=== PATIENT | female | born 1980 | race African-American/Black ===

== ENCOUNTER 2022-08-17 12:46 | Inpatient (IN) | payer MEDICAID ==
[~2022-08-17] VITALS: Ht 165.1 cm; Wt 61.2 kg
[2022-08-17 12:48] VITALS: BP 142/60
--- NOTE | 2022-08-17 12:50 | NUR ---
SHERRI PAVON, TO BED 02 VIA EFRAÍN.
--- NOTE | 2022-08-17 13:00 | NUR ---
42 Y/O FEMALE BIBA HOME C/O RUQ ABD PAIN X1DAY WITH 1 EPISODE OF NV TODAY. STATES THAT SHE TOOK A "SHOT" TODAY AND A PINT OF VODKA YESTERDAY. BELIEVES THIS TO BE THE CAUSE OF HER PAIN. DENIES DIARRHEA, DENIES ANY BLOOD IN VOMITUS. DENIES ANY MEDICATION PRIOR TO ARRIVAL. PLACED ON BEDSIDE MONITOR NKA PMH: GALLBLADDER REMOVAL
[2022-08-17 14:03] LABS: BASOPHILS % (AUTO) 0.4 % (0.0-2.0); EOSINOPHILS % (AUTO) 0.4 % (0.0-4.0); HEMATOCRIT 35.6 % (36-48); HEMOGLOBIN 12.1 g/dL (12.0-16.0); LYMPHOCYTES # (AUTO) 1.5 K/uL (2.5-16.5); LYMPHOCYTES % (AUTO) 14.3 % (20.5-51.1); MEAN CORPUSCULAR HEMOGLOBIN 29 pg (27-31); MEAN CORPUSCULAR HGB CONC 34 g/dL (33-37); MEAN CORPUSCULAR VOLUME 86.8 fL (80-94); MONOCYTES # (AUTO) 0.9 K/uL (0.8-1.0); MONOCYTES % (AUTO) 8.5 % (1.7-9.3); NEUTROPHILS # (AUTO) 7.9 K/uL (1.8-7.7); NEUTROPHILS % (AUTO) 76.4 % (42.2-75.2); PLATELET COUNT (AUTO) 458 K/uL (140-450); RED CELL DISTRIBUTION WIDTH 14.3 % (11.6-13.7); WHITE BLOOD COUNT (AUTO) 10.3 K/uL (4.8-10.8)
[2022-08-17 14:52] LABS: ANION GAP 9.7 (8-16); CARBON DIOXIDE 31.9 mmol/L (21-32); CREATININE 0.7 mg/dL (0.6-1.3); POTASSIUM 3.6 mmol/L (3.5-5.1); TOTAL BILIRUBIN 0.5 mg/dL (0.0-1.0)
[2022-08-17] MEDS ORDERED: NACL 0.9% 1,000 ML IV ONE ×2 (15:55→17:20)
[2022-08-17] MEDS ORDERED: ONDANSETRON 4 MG/2 ML VIAL IVP ONE (15:55)
[2022-08-17] MEDS ORDERED: MORPHINE SULFATE 4 MG/ML SYR IVP ONE (15:55)
--- NOTE | 2022-08-17 16:43 | NUR ---
Covid specimen obtained/labeled and walked to lab.
[2022-08-17] MEDS ORDERED: ONDANSETRON 4 MG/2 ML VIAL ONE (17:00)
[2022-08-17] MEDS ORDERED: MORPHINE SULFATE 4 MG/ML SYR ONE (17:00)
--- NOTE | 2022-08-17 19:23 | NUR ---
PT IS IN ROOM AIR. ALERT AND ORIENTED X4. SHE IS AMBULATORY. ROOM AIR.
[2022-08-17 21:29] LABS: APPEARANCE,URINE CLEAR (CLEAR); BILIRUBIN,URINE NEGATIVE (NEGATIVE); BLOOD, URINE NEGATIVE (NEGATIVE); COLOR,URINE YELLOW (YELLOW); LEUKOCYTE ESTERASE ,URINE NEGATIVE (NEGATIVE); NITRITE, URINE NEGATIVE (NEGATIVE); UGLUCOSE NEGATIVE (NEGATIVE)
[2022-08-17] MEDS: MORPHINE SULFATE 2 MG/ML SYR IVP PRN (21:39)
--- NOTE | 2022-08-17 23:53 | NUR ---
RECEIVED SHIFT REPORT FROM ÁLVARO AARON FOR ED. PATIENT WILL ARRIVE SHORTLY TO THE MED/SURG FLOOR. [id number]
--- NOTE | 2022-08-18 00:14 | NUR ---
RECEIVED [id number] VIA WHEELCHAIR FOR ADMISSION. PATIENT ALERT AND ORIENTED X 4. PATIENT WAS ABLE TO VERBALIZE WHY SHE WAS ADMITTED TO THE HOSPITAL. PATIENT WAS ALSO ABLE TO GIVE HER MEDICAL HISTORY. NO NOTED OPEN WOUND DURING BODY CHECK. PATIENT ON ROOM AIR CHEST RISING AND FALLING WITHOUT INCIDENT. PATIENT COMPLAINED OF PAIN 6/10 TO ABDOMINAL BUT WAS EXPLAINED MEDIATION IS NOT DUE FOR ADMINISTRATION UNTIL 0139. NURSING GAVE HOSPITAL ORIENTATION TO ROOM AND VISITING HOURS. SIDE RAILS UP X 2 FOR SAFETY AND ADJUSTMENTS. CALL LIGHT WITHIN REACH FOR ASSISTANCE. [email or web address]
--- NOTE | 2022-08-18 00:37 | NUR ---
Patient will be admitted to care of pancreatitis. Admited to [facility]. Will go to room 106 B. Belongings list completed. Report to choco.
[2022-08-18] MEDS: MORPHINE SULFATE 2 MG/ML SYR IVP PRN ×4 (02:28→20:18)
--- NOTE | 2022-08-18 02:34 | NUR ---
Patient's Plan of Care was discussed and reviewed with ROLLER SHOP SUPERVISOR: YOLETTE
--- NOTE | 2022-08-18 03:40 | NUR ---
PATIENT IS ASLEEP IN BED. [email or web address]
[2022-08-18 04:00] VITALS: BP 106/60
--- NOTE | 2022-08-18 05:23 | NUR ---
PAIN IN ABDOMINAL HAS LESSEN SIGNIFICANTLY STATED BY PATIENT. PATIENT WAS ABLE TO WALK TOT HE RESTROOM WITHOUT INCIDENT. NO COMPLAINTS OF PAIN AT THIS TIME. NOL NOTED RESPIRATORY DISTRESS. [email or web address]
--- NOTE | 2022-08-18 07:06 | NUR ---
ENDORSED PATIENT TO LUIS ENRIQUE RN (REGISTRY), PATIENT WAS STABLE AT THIS TIME. [email or web address]
--- NOTE | 2022-08-18 07:18 | NUR ---
receive the patinet from the assistant finance director rn in rm 106B aox4 room air . admitting diagnosis of pancreatitis . will continue to monitor .
[2022-08-18 07:25] LABS: CARBON DIOXIDE 28.6 mmol/L (21-32); CREATININE 0.7 mg/dL (0.6-1.3); POTASSIUM 3.6 mmol/L (3.5-5.1)
[2022-08-18 08:02] LABS: BASOPHILS % (AUTO) 0.5 % (0.0-2.0); EOSINOPHILS # (AUTO) 0.1 K/uL (0-0.4); EOSINOPHILS % (AUTO) 1.4 % (0.0-4.0); HEMATOCRIT 34.8 % (36-48); HEMOGLOBIN 11.7 g/dL (12.0-16.0); LYMPHOCYTES # (AUTO) 2.3 K/uL (2.5-16.5); MEAN CORPUSCULAR HEMOGLOBIN 30 pg (27-31); MEAN CORPUSCULAR HGB CONC 34 g/dL (33-37); MONOCYTES # (AUTO) 0.7 K/uL (0.8-1.0); MONOCYTES % (AUTO) 10.2 % (1.7-9.3); NEUTROPHILS % (AUTO) 55.9 % (42.2-75.2); PLATELET COUNT (AUTO) 417 K/uL (140-450); RED BLOOD CELL COUNT(AUTO) 3.91 MIL/uL (4.20-5.40); RED CELL DISTRIBUTION WIDTH 14.4 % (11.6-13.7); WHITE BLOOD COUNT (AUTO) 7.2 K/uL (4.8-10.8)
--- NOTE | 2022-08-18 09:00 | NUR ---
morphine sulfate was given due to abdominal pain
[2022-08-18] MEDS ORDERED: HYDROcodone/APAP 7.5/325 MG 1 TAB PO PRN (10:20)
[2022-08-18] MEDS ORDERED: ZOLPIDEM 5 MG TAB PO PRN (10:20)
[2022-08-18] MEDS ORDERED: guaiFENesin DM 200/20 MG-10 ML 10 ML UDC PO PRN (10:20)
[2022-08-18] MEDS ORDERED: ACETAMINOPHEN 325 MG TAB PO PRN (10:20)
[2022-08-18] MEDS ORDERED: DOCUSATE SODIUM 100 MG GELCAP PO PRN (10:20)
[2022-08-18] MEDS ORDERED: ONDANSETRON 4 MG/2 ML VIAL IM/IVP PRN (10:20)
--- NOTE | 2022-08-18 10:30 | NUR ---
got consent for ct of the abdomen and pelvis with contrast
[2022-08-18 11:03] LABS: PROTHROMBIN TIME 11.7 secs (10.8-13.4)
--- NOTE | 2022-08-18 11:30 | NUR ---
pick for the ct of the abdomen . result was hemorrhagic pancreatitis .
--- NOTE | 2022-08-18 11:45 | NUR ---
made md corea aware . order to consult md guerin for a surgical , possible to higher level of care .
[2022-08-18 12:01] LABS: CHOL/HDL RATIO 3.4 (1-4.5); FREE T4 (FREE THYROXINE) 1.21 ng/dL (0.76-1.46); MAGNESIUM 1.7 mg/dL (1.8-2.4); PHOSPHORUS 4.1 mg/dL (2.5-4.9); THYROID STIMULATING HORMONE 1.68 uIU/mL (0.34-3.74)
--- NOTE | 2022-08-18 12:30 | NUR ---
md guerin order to be transfer to higher level of care. will inform the change house attendant
[2022-08-18] MEDS: DEXT 5% /NACL 0.9% 1,000 ML IV SCH ×3 (13:34→23:33)
--- NOTE | 2022-08-18 14:10 | NUR ---
the shannon corrugator supervisor inform the rn that [facility] for possible transfer requesting for a pcr covid test . sample has been sent to the lab
--- NOTE | 2022-08-18 15:38 | NUR ---
ORDER AMD PROGRESS NOTES, H&P, LABS, MEDICATIONS FAXED TO [facility] AT [facility] [phone]. SPKE TO [facility] AND REQUESTED THE COVID PCR. CALLED [facility] [phone] AND PLACED ON HOLD. WILL MONITOR.
--- NOTE | 2022-08-18 18:27 | NUR ---
will endorse to police shift commander rn for continuity of care. for possible transfer to higher level of care
--- NOTE | 2022-08-18 19:14 | NUR ---
[facility], [place] decline to accept, spoke to Dr. Silverman and was made aware. He asked for lipase level and stated that patient has pancreatitis and it can be managed at [facility]. No need to transfer to Higher LOC.
--- NOTE | 2022-08-18 19:15 | NUR ---
RECEIVED PATIENT LYING ON THE BED, NO DISTRESS NOTED, PATIENT IS AWAKE, ALERT AND ORIENTED. CALL LIGHT WITHIN REACH.
[2022-08-18 20:00] VITALS: BP 118/78
--- NOTE | 2022-08-18 20:18 | NUR ---
PATIENT C/O 7/10 PAIN ON ABDOMEN AND LOWER BACK, PRN MORPHINE GIVEN ORDERED. BP 118/78. ALL SAFETY MEASURES IN PLACE.
--- NOTE | 2022-08-18 20:50 | NUR ---
PATIENT WAS SEEN BY DR. RICE, PER DR. RICE, PATIENT DOES NOT NEED TO TRANSFER TO TERTIARY CARE, NEEDS GI CONSULT, DR. RICE ALREADY SPOKE WITH CHRISTIANO WOOD. PATIENT STILL NPO TONIGHT. PATIENT INFORMED OF NPO STATUS, VERBALIZED UNDERSTANDING.
--- NOTE | 2022-08-19 00:43 | NUR ---
PATIENT IS ASLEEP, NO SIGNS OF DISTRESS NOTED, NO SIGNS OF PAIN/DISCOMFORT NOTED. CALL LIGHT WITHIN REACH.
[2022-08-19 04:00] VITALS: BP 101/55
[2022-08-19] MEDS: MORPHINE SULFATE 2 MG/ML SYR IVP PRN ×2 (05:50→10:58)
--- NOTE | 2022-08-19 05:50 | NUR ---
PRN MORPHINE GIVEN ORDERED, PATIENT C/O 01/07 PAIN ON RIGHT SIDE OF ABDOMEN. BP 123/81, P 68.
[2022-08-19 07:27] LABS: BASOPHILS % (AUTO) 0.4 % (0.0-2.0); EOSINOPHILS # (AUTO) 0.2 K/uL (0-0.4); EOSINOPHILS % (AUTO) 2.5 % (0.0-4.0); HEMATOCRIT 35.1 % (36-48); HEMOGLOBIN 11.8 g/dL (12.0-16.0); LYMPHOCYTES # (AUTO) 1.9 K/uL (2.5-16.5); LYMPHOCYTES % (AUTO) 27.1 % (20.5-51.1); MEAN CORPUSCULAR HEMOGLOBIN 30 pg (27-31); MEAN CORPUSCULAR HGB CONC 34 g/dL (33-37); MEAN CORPUSCULAR VOLUME 88.1 fL (80-94); MONOCYTES # (AUTO) 0.7 K/uL (0.8-1.0); NEUTROPHILS # (AUTO) 4.1 K/uL (1.8-7.7); PLATELET COUNT (AUTO) 387 K/uL (140-450); RED BLOOD CELL COUNT(AUTO) 3.99 MIL/uL (4.20-5.40); RED CELL DISTRIBUTION WIDTH 14.3 % (11.6-13.7); WHITE BLOOD COUNT (AUTO) 6.9 K/uL (4.8-10.8)
--- NOTE | 2022-08-19 07:32 | NUR ---
ENDORSED PATIENT TO DAY NURSE FOR CONTINUITY OF CARE. NEEDS MET THROUGHOUT THE SHIFT, PATIENT IN STABLE CONDITION.
--- NOTE | 2022-08-19 07:33 | NUR ---
RECEIVED PT FROM CORPORATE DEVELOPMENT ANALYST NURSE FOR CONTINUITY OF CARE. PT IN BED CRYING. STATES SHE HAS ABDOMINAL PAIN 10/10 AND LAST DOSE OF PAIN MEDICATION GIVEN TO HER NOT WORKING. INFORMED DR BOWERS, OF MORPHINE GIVEN AT 0550 AND PAIN STILL /, AWAITING DR RESPONSE. PROVIDED PT WITH HEATING PACKS AND ASSISTED PT TO REPOSITION. PT IS AOX4 ABLE TO VERBALIZE NEEDS. RESPIRATIONS EVEN AND UNLABORED ON RA. SKIN WARM AND DRY TO TOUCH. IV ON R ARM 20G INFUSING @125CCS. CALL LIGHT WITHIN REACH. ALL SAFETY PRECAUTIONS IN PLACE.
[2022-08-19 07:35] LABS: ANION GAP 8.7 (8-16); CARBON DIOXIDE 29.8 mmol/L (21-32); CREATININE 0.7 mg/dL (0.6-1.3); POTASSIUM 3.5 mmol/L (3.5-5.1)
[2022-08-19 08:00] VITALS: BP 153/104
[2022-08-19 08:06] LABS: T4 (THYROXINE) 9.4 ug/dL (4.5-12.0)
--- NOTE | 2022-08-19 08:33 | NUR ---
PATIENT HAS BEEN SCREENED AND CATEGORIZED LOW NUTRITION RISK. PATIENT WILL BE SEEN WITHIN 7 DAYS OF ADMISSION. 08/17/22-08/24/[address]
[2022-08-19] MEDS: DEXT 5% /NACL 0.9% 1,000 ML IV SCH ×2 (08:58→17:55)
[2022-08-19] MEDS: PANTOPRAZOLE 40 MG TABEC PO SCH (09:03)
--- NOTE | 2022-08-19 10:55 | NUR ---
PT C/O PAIN 8/10 ON ABDOMEN. MEDICATED WITH MORPHINE BY GALEN AWAD.
[2022-08-19] MEDS: POTASSIUM CHLORIDE 10 MEQ TABER PO PRN (12:23)
--- NOTE | 2022-08-19 12:23 | NUR ---
K DUR ADMINISTERED, PT TOLERATED WELL. ICE CHIPS GIVEN PER DR BOWERS.
--- NOTE | 2022-08-19 15:00 | NUR ---
MAKING ROUNDS, PT IN BED SLEEPING VISIBLE CHEST RISE/FALL. CALL LIGHT WITHIN REACH.
[2022-08-19 16:00] VITALS: BP 126/96
[2022-08-19] MEDS: MORPHINE SULFATE 4 MG/ML SYR IVP PRN ×2 (16:36→20:33)
--- NOTE | 2022-08-19 17:00 | NUR ---
BROUGHT PT TOILETING SUPPLIES. CHANGED BEDDING/SHEETS.
--- NOTE | 2022-08-19 19:21 | NUR ---
ENDORSED PT TO ENTRY LEVEL ACCOUNT REPRESENTATIVE NURSE FOR CONTINUITY OF CARE. PT IN STABLE CONDITION.
--- NOTE | 2022-08-19 19:25 | NUR ---
RECEIVED PATIENT LYING ON THE BED, NO SIGNS OF DISTRESS NOTED, IV ACCESS SITE ON RIGHT ARM RUNNING D5NS @125ML/HR, ALL SAFETY MEASURES IN PLACE.
[2022-08-19 20:00] VITALS: BP 121/82
--- NOTE | 2022-08-19 20:38 | NUR ---
PATIENT C/O 7/10 PAIN ON RUQ, PRN MORPHINE GIVEN ORDERED. BP 121/82. WILL CONTINUE TO MONITOR THE PATIENT.
--- NOTE | 2022-08-19 22:34 | NUR ---
PATIENT IS ASLEEP, BREATHING EVEN AND NON LABORED. CALL LIGHT WITHIN REACH.
[2022-08-20] MEDS: MORPHINE SULFATE 4 MG/ML SYR IVP PRN ×3 (02:24→14:52)
--- NOTE | 2022-08-20 02:24 | NUR ---
PATIENT C/O 7/10 PAIN ON RUQ, PRN MORPHINE GIVEN ORDERED.
[2022-08-20] MEDS: DEXT 5% /NACL 0.9% 1,000 ML IV SCH ×4 (02:36→23:09)
[2022-08-20 04:00] VITALS: BP 104/62
--- NOTE | 2022-08-20 07:01 | NUR ---
ENDORSED TO DAY NURSE FOR CONTINUITY OF CARE. NEEDS MET THROUGHOUT THE SHIFT. PATIENT IN STABLE CONDITION.
--- NOTE | 2022-08-20 07:02 | NUR ---
RECEIVED PT FROM RADIOLOGICAL ENGINEER NURSE FOR CONTINUITY OF CARE. PT IN BED WITH EYES CLOSED. VISIBLE CHEST RISE/FALL. RESPIRATIONS EVEN AND UNLABORED ON RA. SKIN WARM AND DRY TO TOUCH. NO DISTRESS NOTED. IV ON R ARM 20G RUNNING 125CC OF D5NS FLUIDS. CALL LIGHT WITHIN REACH ALL SAFETY PRECAUTIONS IN PLACE.
[2022-08-20 07:22] LABS: BASOPHILS % (AUTO) 0.5 % (0.0-2.0); EOSINOPHILS # (AUTO) 0.1 K/uL (0-0.4); EOSINOPHILS % (AUTO) 2.7 % (0.0-4.0); HEMATOCRIT 31.8 % (36-48); HEMOGLOBIN 10.8 g/dL (12.0-16.0); LYMPHOCYTES % (AUTO) 35.4 % (20.5-51.1); MEAN CORPUSCULAR HEMOGLOBIN 30 pg (27-31); MEAN CORPUSCULAR HGB CONC 34 g/dL (33-37); MONOCYTES # (AUTO) 0.8 K/uL (0.8-1.0); MONOCYTES % (AUTO) 13.9 % (1.7-9.3); NEUTROPHILS # (AUTO) 2.6 K/uL (1.8-7.7); NEUTROPHILS % (AUTO) 47.5 % (42.2-75.2); PLATELET COUNT (AUTO) 345 K/uL (140-450); RED BLOOD CELL COUNT(AUTO) 3.57 MIL/uL (4.20-5.40); RED CELL DISTRIBUTION WIDTH 14.2 % (11.6-13.7); WHITE BLOOD COUNT (AUTO) 5.6 K/uL (4.8-10.8)
[2022-08-20 07:27] LABS: CARBON DIOXIDE 28.5 mmol/L (21-32); CREATININE 0.7 mg/dL (0.6-1.3); POTASSIUM 3.5 mmol/L (3.5-5.1)
[2022-08-20] MEDS: POTASSIUM CHLORIDE 10 MEQ TABER PO PRN (09:48)
[2022-08-20] MEDS: PANTOPRAZOLE 40 MG TABEC PO SCH (09:49)
--- NOTE | 2022-08-20 09:50 | NUR ---
ADMINISTERED SCHEDULED MED AND PRN POTASSIUM. PT TOLERATING WELL.
--- NOTE | 2022-08-20 12:32 | NUR ---
MAKING ROUNDS PT LAYING DOWN MAKING A PHONE CALL. CALL LIGHT WITHIN REACH.
[2022-08-20 16:00] VITALS: BP 119/84
[2022-08-20] MEDS: AMYLASE/LIPASE/PROTEASE 1 CAPDR PO SCH (17:23)
--- NOTE | 2022-08-20 19:30 | NUR ---
ENDORSED PT TO MANAGER BRAND NURSE FOR CONTINUITY OF CARE. PT IN STABLE CONDITION.
--- NOTE | 2022-08-20 19:31 | NUR ---
RECEIVED ENDORSEMENT FROM LAURA OLMEDO, PATIENT WAS STABLE DURING SHIFT CHANGE. PATIENT WAS ABLE TO EXPLAIN WHY SHE IS IN THE FACILITY. PATIENT INQUIRED ABOUT A DIET CHANGE BECAUSE SHE COMPLAINED THAT THE FOOD WAS TOO SWEET AND NOT GOOD. NURSING WILL INQUIRE FOR A CHANGE FOR THE DIET CHANGE. PATIENT IS AMBULATORY AND ABLE TO USE THE CALL LIGHT WITHOUT INCIDENT. SIDE RAILS UP X 2 FOR COMFORT AND SAFETY. IV CLEAN AND INTACT. NO S/S OF PAIN/DISCOMFORT. NO S/S OF RESPIRATORY DISTRESS. CALL LIGHT WITHIN REACH. [email or web address]
[2022-08-20 20:00] VITALS: BP 124/83
--- NOTE | 2022-08-20 20:00 | NUR ---
Patient's Plan of Care was discussed and reviewed with ATTENDING PHYSICIAN: EMILIANO COOLEY
[2022-08-20] MEDS ORDERED: AMITRIPTYLINE 10 MG TAB PO SCH (21:00)
--- NOTE | 2022-08-20 23:10 | NUR ---
DURING ROUNDS NURSING NOTED PATIENT IN BED ASLEEP. NO OTED S/S OF PAIN/DISCOMFORT. NO NOTED RESPIRATORY DISTRESS. SIDE RAILS UP X 2. BED IN THE LOWEST POSITION. CALL LIGHT WITHIN REACH. [email or web address]
--- NOTE | 2022-08-21 01:22 | NUR ---
DURING ROUNDS NURSING NOTED PATIENT ASLEEP. NO S/S OF PAIN/DISCOMFORT. NO S/S OF RESPIRATORY DISTRESS. SIDE RAILS UP X 2. CALL LIGHT IN REACH. [email or web address]
[2022-08-21] MEDS: MORPHINE SULFATE 4 MG/ML SYR IVP PRN (03:50)
[2022-08-21 04:00] VITALS: BP 108/72
--- NOTE | 2022-08-21 07:01 | NUR ---
ENDORSED PATIENT TO LAURA OLMEDO, FOR CONTINUITY OF CARE. PATIENT WAS STABLE DURING SHIFT REPORT. [email or web address]
--- NOTE | 2022-08-21 07:02 | NUR ---
RECEIVED PT FROM CADD OPERATOR NURSE FOR CONTINUITY OF CARE. PT IN BED AOX4, ABLE TO VERBALIZE NEEDS. SKIN WARM AND DRY TO TOUCH. RESPIRATIONS EVEN AND UNLABORED ON RA, NO DISTRESS NOTED. CALL LIGHT WITHIN REACH. ALL SAFETY PRECAUTIONS IN PLACE.
[2022-08-21 07:07] LABS: BASOPHILS % (AUTO) 0.5 % (0.0-2.0); EOSINOPHILS # (AUTO) 0.1 K/uL (0-0.4); EOSINOPHILS % (AUTO) 2.4 % (0.0-4.0); HEMOGLOBIN 11.3 g/dL (12.0-16.0); LYMPHOCYTES # (AUTO) 1.8 K/uL (2.5-16.5); MEAN CORPUSCULAR HEMOGLOBIN 30 pg (27-31); MEAN CORPUSCULAR HGB CONC 33 g/dL (33-37); MEAN CORPUSCULAR VOLUME 88.9 fL (80-94); MONOCYTES # (AUTO) 0.8 K/uL (0.8-1.0); MONOCYTES % (AUTO) 13.8 % (1.7-9.3); NEUTROPHILS # (AUTO) 2.9 K/uL (1.8-7.7); NEUTROPHILS % (AUTO) 51.3 % (42.2-75.2); PLATELET COUNT (AUTO) 335 K/uL (140-450); RED BLOOD CELL COUNT(AUTO) 3.82 MIL/uL (4.20-5.40); RED CELL DISTRIBUTION WIDTH 13.9 % (11.6-13.7); WHITE BLOOD COUNT (AUTO) 5.6 K/uL (4.8-10.8)
[2022-08-21 07:24] LABS: ANION GAP 10.9 (8-16); CARBON DIOXIDE 27.6 mmol/L (21-32); CREATININE 0.7 mg/dL (0.6-1.3); POTASSIUM 3.5 mmol/L (3.5-5.1)
[2022-08-21 08:00] VITALS: BP 135/78
--- NOTE | 2022-08-21 08:00 | NUR ---
Patient's Plan of Care was discussed and reviewed with SHARA: JOMAR
[2022-08-21] MEDS: AMYLASE/LIPASE/PROTEASE 1 CAPDR PO SCH ×2 (08:36→12:16)
[2022-08-21] MEDS: PANTOPRAZOLE 40 MG TABEC PO SCH (08:36)
[2022-08-21] MEDS: POTASSIUM CHLORIDE 10 MEQ TABER PO PRN (08:38)
--- NOTE | 2022-08-21 12:19 | NUR ---
ADMINISTERED SCHEDULED MEDICATION. PT TOLERATING WELL.
[2022-08-21] MEDS ORDERED: PAN PO (12:51)
[2022-08-21] MEDS ORDERED: AMIT10TA25 PO (12:51)
[2022-08-21] MEDS ORDERED: PANT40EC56 PO (12:51)
--- NOTE | 2022-08-21 14:58 | NUR ---
REVIEWED DC PACKET WITH PT. REMOVED NAME BAND AND IV. PT GATHERED BELONGINGS, AMBULATED TO [facility] LOBBY. FAMILY VEHICLE AT FRONT PT SAFELY GOT IN VEHICLE. PT IN STABLE CONDITION, DC TO HOME.
== END 2022-08-21 15:00 | disposition home or self-care (01) | DRG 282 ==
LOC: MED 12:46 → MMU 17:27 → MTU 22:44
DX: K85.90 Acute pancreatitis without necrosis or infection, unspecified (principal); R71.0 Precipitous drop in hematocrit; E86.0 Dehydration; E83.42 Hypomagnesemia; F10.10 Alcohol abuse, uncomplicated; F17.210 Nicotine dependence, cigarettes, uncomplicated; Z20.822 Contact with and (suspected) exposure to COVID-19; D75.839 Thrombocytosis, unspecified; F12.90 Cannabis use, unspecified, uncomplicated; Z90.49 Acquired absence of other specified parts of digestive tract
CPT/HCPCS: 36415; 71045; 76705; 80048; 80053; 81003; 82150; 83036; 83690; 83735; 83880; 84100; 84436; 84439; 84443; 84479; 84681; 85025; 85610; 85730; 87081; 87635-QW; 96361; 96374; 96375; 99285; J2270; J2405; Q0092; Q9967